=== PATIENT | male | born 1935 | race Caucasian/White ===

== ENCOUNTER 2019-05-14 07:43 | Emergency (ER) | payer MEDICARE | END 2019-05-14 08:23 | disposition home or self-care (01) | LOC: ERS 07:43 | DX: H11.32 Conjunctival hemorrhage, left eye (principal); I25.2 Old myocardial infarction; I10 Essential (primary) hypertension; E78.5 Hyperlipidemia, unspecified; Z79.82 Long term (current) use of aspirin; Z79.899 Other long term (current) drug therapy | CPT/HCPCS: 99283 ==

== ENCOUNTER 2019-08-21 07:21 | Outpatient (CLI) | payer MEDICARE ==
--- NOTE | 2019-08-21 09:06 | MRI ---
BRAIN MRI NONCONTRAST: INDICATION: Memory changes. COMPARISON: No prior comparison. FINDINGS: There is no acute territorial infarction, mass effect, or midline shift. Age-related parenchymal vol ume loss with compensatory dilatation of the ventricular system is present. There is mild chronic is chemic disease of the cerebral white matter. Mild mucosal thickening of the paranasal sinuses. The imaged skull base flow voids are patent. IMPRESSION: 1. No acute intracranial abnormalities. 2. Age-related mild parenchymal atrophy. 3. Mild chronic microvascular ischemic disease. POS: [facility]
--- NOTE | 2019-08-21 09:21 | ULT ---
BILATERAL CAROTID DOPPLER ULTRASOUND: HISTORY: Carotid bruit. TECHNIQUE: Ferrera sale ultrasound with color flow and spectral Doppler imaging of the extracranial carotid arterie s systems is performed bilaterally. FINDINGS: There is plaque formation on either side. The peak systolic velocity in the right ICA measures 76 cm/s with an end-diastolic velocity of 9 cm/s and a systolic ratio of 0.91. The peak systolic velocity in the left ICA measures 77 cm/s with an end-diastolic velocity of 17 cm/s and a systolic ratio of 0.74. Flow in both vertebral arteries remains antegrade. IMPRESSION: No evidence of hemodynamically significant stenosis. POS: OFF
== END 2019-08-21 07:22 | disposition home or self-care (01) ==
LOC: BICMRI 07:21
PROVIDERS: ATTEND Family Medicine
DX: R41.3 Other amnesia (principal); R09.89 Other specified symptoms and signs involving the circulatory and respiratory systems; G31.9 Degenerative disease of nervous system, unspecified; I67.82 Cerebral ischemia
CPT/HCPCS: 70551; 93880

== ENCOUNTER 2019-11-17 07:33 | Outpatient (CLI) | payer MEDICARE ==
[2019-11-17 14:05] LABS: #Basophils 0.1 thou/uL (0.0-0.2); #Eosinphils 0.2 thou/uL (0.0-0.7); #Lymphocytes 2.6 thou/uL (1.20-3.40); #Monocytes 0.9 thou/uL (0.11-0.59); #Neutrophils 6.4 thou/uL (1.40-6.50); %Basophils 0.5 % (0.0-1.0); %Eosinophils 1.7 % (0.0-10.0); %Monocytes 8.8 % (0.0-10.0); Hemoglobin 15.5 g/dL (14.0-18.0); Mean Corpuscular HGB CONC 32.8 g/dL (32.0-36.0); Mean Corpuscular Hemoglobin 31.2 pg (27.0-31.0); Mean Corpuscular Volume 95.2 fL (78.0-98.0); Mean Platelet Volume 9.8 fL (7.4-10.4); Platelet Count 180 thou/uL (130-400); RBC Distribution Width 12.7 % (11.5-14.5); Red Blood Cell (RBC) Count 4.96 mill/uL (4.70-6.10); White Blood Cell (WBC) Count 10.1 thou/uL (4.8-10.8)
[2019-11-17 14:12] LABS: Prothrombin Time 12.7 SEC (12.0-14.7)
[2019-11-17 14:15] LABS: Bacteria/HPF None Seen HPF (None Seen); Bilirubin Negative (Negative); Blood, Urine Negative (Negative); Clarity Clear (Clear); Glucose, Urine (Dipstick) Normal (Negative); Leukocyte Negative Leu/uL (Negative); Nitrite Negative (Negative); Protein, Urine (Dipstick) Negative (Neg-Trace); RBC/HPF 0-3 HPF (0-3); Squamous Epithelial None Seen HPF (0-3); Urobilinogen Normal mg/dL (Less than 2); WBC/HPF 0-3 HPF (0-3)
[2019-11-17 14:29] LABS: Anion Gap 11 mmol/L (10-20); BUN (Urea Nitrogen) 19 mg/dL (8.4-25.7); Calc. Creatinine Clearance 0 mL/min (70-130); Calcium 9.7 mg/dL (7.8-10.44); Carbon Dioxide 28 mmol/L (23-31); Chloride 106 mmol/L (98-107); Estimated GFR-MDRD 64; Glucose 78 mg/dL (83-110); Sodium 140 mmol/L (136-145)
== END 2019-11-17 07:34 | disposition home or self-care (01) ==
LOC: LABBT 07:33
PROVIDERS: ATTEND Orthopaedic Surgery
DX: Z01.818 Encounter for other preprocedural examination (principal); M23.52 Chronic instability of knee, left knee
CPT/HCPCS: 80048; 81001; 85025; 85610; 87081

== ENCOUNTER 2019-11-17 12:30 | Inpatient (IN) | payer MEDICARE ==
[2019-11-17 12:38] VITALS: BMI 26.6
[2019-11-23] MEDS ORDERED: Sodium Chloride 0.9% 100 ML ONE (06:15)
[2019-11-23] MEDS ORDERED: Tranexamic Acid 1,000 MG/10 ML VIAL ONE ×2 (06:15→09:12)
[2019-11-23] MEDS ORDERED: Fentanyl 100 MCG/2 ML VIAL ONE ×3 (06:37→09:57)
[2019-11-23] MEDS ORDERED: Midazolam HCl 2 mg/2 ml Vial ONE (06:37)
[2019-11-23] MEDS ORDERED: PACU-Morphine 4MG/ML VIAL SLOW IVP PRN (06:53)
[2019-11-23] MEDS ORDERED: Promethazine HCl 25 MG/ML VIAL IM PRN ×3 (06:53→07:06)
[2019-11-23] MEDS ORDERED: Promethazine HCl 25 MG/ML VIAL SLOW IVP PRN (06:53)
[2019-11-23] MEDS ORDERED: HYDROcodone/Acetaminophen 10/325 mg Tablet PO PRN ×3 (07:00→07:06)
[2019-11-23] MEDS ORDERED: Zolpidem Tartrate 5 MG TAB PO PRN ×2 (07:00→07:06)
[2019-11-23] MEDS ORDERED: traMADol HCl 50 MG TAB PO PRN ×3 (07:00→07:06)
[2019-11-23] MEDS ORDERED: Ondansetron PF 4 MG/2 ML Vial IVP PRN ×2 (07:00→07:06)
[2019-11-23] MEDS ORDERED: Acetaminophen 325 MG TAB PO PRN ×2 (07:00→07:08)
[2019-11-23] MEDS ORDERED: diphenhydrAMINE 25 MG CAP PO PRN (07:00)
[2019-11-23] MEDS ORDERED: Acetaminophen 500 MG TAB PO PRN (07:02)
[2019-11-23] MEDS ORDERED: Ropivacaine HCl/PF 250 ML in Premix Bag 1 BAG NERVE BLCK SCH (07:06)
[2019-11-23] MEDS ORDERED: Fentanyl 100 MCG/2 ML VIAL SLOW IVP PRN (07:07)
[2019-11-23] MEDS ORDERED: Phenylephrine HCL 10 MG/ML VIAL ONE (07:25)
[2019-11-23] MEDS ORDERED: Famotidine/PF 20 mg/2ml Vial ONE (07:25)
[2019-11-23] MEDS ORDERED: Aspirin 81 mg Enteric Coated Tablet PO SCH (09:00)
--- NOTE | 2019-11-23 09:42 | RAD ---
Exam:2 views left knee HISTORY: Status post arthroplasty. COMPARISON: 02/04/2009 FINDINGS: Findings compatible with right knee arthroplasty. Heterotopic calcification is noted. Expec omer postoperative changes in the soft tissues. IMPRESSION: Findings compatible with left knee arthroplasty.
[2019-11-23] MEDS ORDERED: Ondansetron PF 4 MG/2 ML Vial ONE (09:44)
[2019-11-23] MEDS ORDERED: PROPOFOL 200 MG/20 ML VIAL ONE (09:44)
[2019-11-23] MEDS ORDERED: Ropivacaine 0.5% HCl/PF (150 MG/30 ML VIAL) ONE (09:44)
[2019-11-23] MEDS ORDERED: PHENYLEPHRINE-NS 100 MCG/ML 10 ML SYRINGE ONE (09:44)
[2019-11-23] MEDS ORDERED: Dexamethasone 20 MG/5 ML VIAL ONE (09:44)
[2019-11-23] MEDS ORDERED: Ropivacaine 0.2% HCl/PF (40 MG/20 ML VIAL) ONE (09:44)
[2019-11-23] MEDS ORDERED: Lidocaine 1% PF 5 ML VIAL ONE (09:44)
[2019-11-23] MEDS: CeleCOXIB 100 MG CAP PO SCH (10:15)
[2019-11-23] MEDS: Ubidecarenone 50 MG CAP PO SCH (10:15)
[2019-11-23] MEDS: Lisinopril 10 MG TAB PO SCH (10:15)
[2019-11-23] MEDS: Aspirin 81 mg Enteric Coated Tablet PO SCH ×2 (10:15→20:14)
[2019-11-23] MEDS: Amlodipine 5 MG TAB PO SCH (10:15)
[2019-11-23] MEDS: Sodium Chloride 0.9% 1,000 ML IV SCH ×2 (11:54→14:34)
[2019-11-23] MEDS: CEFAZOLIN 2 GM in Premix Bag 1 BAG IVPB SCH ×2 (14:35→22:09)
[2019-11-23] MEDS ORDERED: Tamsulosin HCl 0.4 MG CAP PO SCH (21:00)
[2019-11-23] MEDS ORDERED: Rosuvastatin 10 MG TAB PO SCH (21:00)
[2019-11-24] MEDS: Sodium Chloride 0.9% 1,000 ML IV SCH (04:54)
[2019-11-24 05:18] LABS: Hemoglobin 13.8 g/dL (14.0-18.0); Mean Corpuscular HGB CONC 32.9 g/dL (32.0-36.0); Mean Corpuscular Volume 94.2 fL (78.0-98.0); Mean Platelet Volume 9.7 fL (7.4-10.4); Platelet Count 163 thou/uL (130-400); RBC Distribution Width 12.3 % (11.5-14.5); Red Blood Cell (RBC) Count 4.45 mill/uL (4.70-6.10); White Blood Cell (WBC) Count 14.2 thou/uL (4.8-10.8)
[2019-11-24] MEDS ORDERED: Ferrous Gluconate 324 MG TAB PO SCH (08:00)
--- NOTE | 2019-11-24 08:14 | OP ---
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 POSTOPERATIVE DIAGNOSIS: Failed left total knee replacement. PROCEDURE PERFORMED: Revision of total knee replacement one component. ANIME ARTIST: Lyndon Edwards PA-C BLOOD LOSS: Minimal. SPECIMEN: None. DRAINS: None. COMPLICATION: None. DESCRIPTION OF PROCEDURE: The patient was taken to the operating room, where general anesthesia was induced. Left leg was prepped and draped in usual sterile fashion. After exsanguination, tourniquet was inflated to 300 mmHg. I made a sterile incision through the old scar. Dissection was carried down to create thick flaps for later closure. A medial parapatellar arthrotomy was performed. Synovectomy was performed. The gutters were cleared. Polyethylene was examined. This was a simple posterior stabilized polyethylene. The knee was quite unstable to varus stress on exam with the polyethylene in place. After removing the polyethylene, I was able to examine the knee very thoroughly. The lateral femoral condyle had been avulsed in the lateral collateral ligament with it. I performed synovectomy in the posterior aspect of the joint. Copious irrigation was performed. I trialed with a 60 mm total stabilized polyethylene liner. This gave excellent stability throughout the range of motion. Trials were removed. Additional irrigation was performed. Permanent implants were packed into place. Retinaculum was repaired with #2 Vicryl and #2 Quill, subcu with 2-0 Quill, and skin was closed with Monoderm. Sterile dressing was applied. Job ID: [id number]
[2019-11-24] MEDS: CeleCOXIB 100 MG CAP PO SCH (08:29)
[2019-11-24] MEDS: Amlodipine 5 MG TAB PO SCH (08:30)
[2019-11-24] MEDS: Lisinopril 10 MG TAB PO SCH (08:30)
[2019-11-24] MEDS: Ubidecarenone 50 MG CAP PO SCH (08:30)
[2019-11-24] MEDS: Aspirin 81 mg Enteric Coated Tablet PO SCH (08:30)
[2019-11-24] MEDS ORDERED: Senokot S 8.6-50 MG TAB PO SCH (09:00)
[2019-11-24] MEDS ORDERED: Multivitamin W/ Minerals 1 TAB PO SCH (09:00)
[2019-11-24 11:11] VITALS: BP 128/66; TEMP 97.9
[2019-11-24] MEDS ORDERED: Prevnar 13-Val Conj/PF 0.5 ML SYRINGE IM ONE (13:15)
== END 2019-11-24 13:15 | disposition home or self-care (01) | DRG 465 ==
LOC: SJJU 11-23 05:59 → SURG A 11-23 10:29
PROVIDERS: ADMIT Orthopaedic Surgery; ATTEND Orthopaedic Surgery
PROC: 0SPD0MZ Removal of Lateral Unicondylar Synthetic Substitute from Left Knee Joint, Open Approach (ICD-10-PCS; principal; 2019-11-23)
PROC: 0SRD0MZ Replacement of Left Knee Joint with Lateral Unicondylar Synthetic Substitute, Open Approach (ICD-10-PCS; 2019-11-23)
PROC: 0SBD0ZZ Excision of Left Knee Joint, Open Approach (ICD-10-PCS; 2019-11-23)
DX: T84.093A Other mechanical complication of internal left knee prosthesis, initial encounter (principal); Y83.8 Other surgical procedures as the cause of abnormal reaction of the patient, or of later complication, without mention of misadventure at the time of the procedure; Z88.8 Allergy status to other drugs, medicaments and biological substances
CPT/HCPCS: 36415; 85027; C1776; J0690; J1100; J2001; J2250; J2370; J2405; J2704; J2795; J3010; J3370; J3490; S0028

== ENCOUNTER 2020-01-18 05:45 | Inpatient (IN) | payer MEDICARE ==
[2020-01-18] MEDS ORDERED: Tranexamic Acid 1,000 MG/10 ML VIAL ONE (06:03)
[2020-01-18] MEDS ORDERED: Sodium Chloride 0.9% 100 ML ONE (06:03)
[2020-01-18] MEDS ORDERED: Fentanyl 100 MCG/2 ML VIAL ONE ×2 (06:05→06:31)
[2020-01-18] MEDS ORDERED: Lidocaine 2% Jelly 5 ML TUBE ONE (06:06)
[2020-01-18] MEDS ORDERED: Midazolam HCl 2 mg/2 ml Vial ONE (06:31)
[2020-01-18 06:38] LABS: #Basophils 0.1 thou/uL (0.0-0.2); #Eosinphils 0.2 thou/uL (0.0-0.7); #Lymphocytes 2.4 thou/uL (1.20-3.40); #Monocytes 0.9 thou/uL (0.11-0.59); #Neutrophils 4.4 thou/uL (1.40-6.50); %Basophils 0.7 % (0.0-1.0); %Eosinophils 2.9 % (0.0-10.0); %Lymphocytes 29.8 % (21.0-51.0); %Monocytes 10.8 % (0.0-10.0); %Neutrophils 55.8 % (42.0-75.0); Hemoglobin 13.8 g/dL (14.0-18.0); Mean Corpuscular HGB CONC 32.1 g/dL (32.0-36.0); Mean Corpuscular Hemoglobin 30.4 pg (27.0-31.0); Mean Corpuscular Volume 94.7 fL (78.0-98.0); Mean Platelet Volume 9.6 fL (7.4-10.4); Platelet Count 188 thou/uL (130-400); RBC Distribution Width 12.6 % (11.5-14.5); Red Blood Cell (RBC) Count 4.53 mill/uL (4.70-6.10)
[2020-01-18 06:57] LABS: Anion Gap 8 mmol/L (10-20); BUN (Urea Nitrogen) 20 mg/dL (8.4-25.7); Calc. Creatinine Clearance 0 mL/min (70-130); Calcium 8.9 mg/dL (7.8-10.44); Carbon Dioxide 28 mmol/L (23-31); Chloride 108 mmol/L (98-107); Estimated GFR-MDRD 77; Glucose 93 mg/dL (83-110); Sodium 140 mmol/L (136-145)
[2020-01-18] MEDS ORDERED: HYDROcodone/Acetaminophen 7.5/325 mg Tablet PO PRN (07:02)
[2020-01-18] MEDS ORDERED: Non-Formulary Item 1 EACH (Tadalafil [Cialis] 5 MG) PO PRN (07:04)
[2020-01-18] MEDS ORDERED: Acetaminophen 500 MG TAB PO PRN (07:04)
[2020-01-18] MEDS ORDERED: traMADol HCl 50 MG TAB PO PRN (07:10)
[2020-01-18] MEDS ORDERED: Promethazine HCl 25 MG/ML VIAL IM PRN (07:10)
[2020-01-18] MEDS ORDERED: Acetaminophen 325 MG TAB PO PRN (07:10)
[2020-01-18] MEDS ORDERED: HYDROcodone/Acetaminophen 10/325 mg Tablet PO PRN ×2 (07:10)
[2020-01-18] MEDS ORDERED: Zolpidem Tartrate 5 MG TAB PO PRN (07:10)
[2020-01-18] MEDS ORDERED: Ondansetron PF 4 MG/2 ML Vial IVP PRN (07:10)
[2020-01-18] MEDS ORDERED: Ropivacaine 0.2% 550 ML 550 ML NERVE BLCK SCH (07:10)
[2020-01-18] MEDS ORDERED: Fentanyl 100 MCG/2 ML VIAL IV PRN (07:11)
[2020-01-18] MEDS ORDERED: Phenylephrine 10 MG/ML VIAL ONE (08:11)
[2020-01-18 10:46] VITALS: BMI 26.6
[2020-01-18] MEDS: Amlodipine 5 MG TAB PO SCH (11:02)
[2020-01-18] MEDS: Lisinopril 10 MG TAB PO SCH (11:02)
[2020-01-18] MEDS: traMADol HCl 50 MG TAB PO PRN ×2 (11:21→18:30)
[2020-01-18] MEDS: Ketorolac Tromethamine 30 MG/ML VIAL IVP SCH ×3 (11:24→23:02)
[2020-01-18] MEDS: Ubidecarenone 50 MG CAP PO SCH (11:28)
[2020-01-18] MEDS: Aspirin 81 mg Enteric Coated Tablet PO SCH (11:29)
[2020-01-18] MEDS ORDERED: PROPOFOL 200 MG/20 ML VIAL ONE (12:10)
[2020-01-18] MEDS ORDERED: Ropivacaine 0.5% HCl/PF (150 MG/30 ML VIAL) ONE (12:10)
[2020-01-18] MEDS ORDERED: Ondansetron PF 4 MG/2 ML Vial ONE (12:10)
[2020-01-18] MEDS ORDERED: Glycopyrrolate 0.2 MG/ML 5 ML SYRINGE ONE (12:10)
[2020-01-18] MEDS ORDERED: Rocuronium Bromide 10 MG/ML (10ML VIAL) ONE (12:10)
[2020-01-18] MEDS ORDERED: Lidocaine 1% PF 5 ML VIAL ONE (12:10)
[2020-01-18] MEDS ORDERED: PHENYLEPHRINE-NS 100 MCG/ML 10 ML SYRINGE ONE (12:10)
[2020-01-18] MEDS ORDERED: Dexamethasone 20 MG/5 ML VIAL ONE (12:10)
[2020-01-18] MEDS ORDERED: Ropivacaine 0.2% HCl/PF (40 MG/20 ML VIAL) ONE (12:10)
[2020-01-18] MEDS: CEFAZOLIN 2 GM in Premix Bag 1 BAG IVPB SCH ×2 (14:00→20:13)
[2020-01-18] MEDS ORDERED: Vancomycin HCl 1.5 GM in Sodium Chloride 0.9% 250 ML 300 ML IVPB SCH (18:00)
[2020-01-18] MEDS ORDERED: Vancomycin 1.5 GRAM/300 ML BAG 1.5 GM in Premix Bag 1 BAG IVPB SCH (18:00)
[2020-01-18] MEDS: Dextrose 5 %-0.45 % NaCl 1,000 ML IV SCH ×2 (20:13→20:19)
[2020-01-18] MEDS ORDERED: Tamsulosin HCl 0.4 MG CAP PO SCH (21:00)
[2020-01-18] MEDS ORDERED: Rosuvastatin 10 MG TAB PO SCH (21:00)
[2020-01-19] MEDS: traMADol HCl 50 MG TAB PO PRN (00:45)
[2020-01-19] MEDS: Ketorolac Tromethamine 30 MG/ML VIAL IVP SCH ×3 (00:46→12:58)
[2020-01-19] MEDS: Amlodipine 5 MG TAB PO SCH (08:37)
[2020-01-19] MEDS: Aspirin 81 mg Enteric Coated Tablet PO SCH (08:37)
[2020-01-19] MEDS: Ubidecarenone 50 MG CAP PO SCH (08:37)
[2020-01-19] MEDS: Lisinopril 10 MG TAB PO SCH (08:37)
[2020-01-19 10:57] VITALS: BP 152/69; TEMP 97.9
--- NOTE | 2020-01-19 17:34 | OP ---
DATE OF PROCEDURE: 01/18/2020 PROCEDURE PERFORMED: Right total shoulder arthroplasty of the right biceps tenodesis. NURSE STAFF [facility]: Lyndon Edwards PA-C BLOOD LOSS: Less than 100. SPECIMEN: None. DRAIN: None. COMPLICATION: None. IMPLANTS USED: TORNIER CORTILOC medium glenoid with a 43 mm head and #4 stem. NARRATIVE REPORT: After standard deltopectoral approach, I examined the biceps tendon sheath which was inflamed and had a very thick bursal layer over the top with underlying ganglion. Biceps was opened. The biceps tendon sheath was opened. Biceps was in poor condition. It was taken off the superior glenoid tubercle and tacked and then tenodesed using #5 Ethibond suture to bone below the joint. The subscapularis was taken off using an osteotome to make a small lesser trochanteric osteotomy, tagged with four #5 Ethibond sutures. Head was dislocated. Osteophytes were trimmed. I released the anterior capsule, got the subscapularis to an elastic consistency. I then cut the humeral head at a 135-degree angle and trimmed the osteophytes. The head was then broached and sized appropriately. A trial prosthesis was left in the shaft and I approached the glenoid. Bone spurs were removed from around the glenoid. True center of the glenoid was identified. I made a single drill hole and reamed with an appropriate size reamer, trimmed osteophytes, punched the keel and did a trial reduction with the glenoid which appeared to be an appropriate fit. Trials were removed and irrigation was performed. The glenoid was punched into place and cement was allowed to cure. Extraneous cement was removed. Attention was turned back to the humerus where trial heads were used and the appropriate size was confirmed with the appropriate elasticity of the tissues. Trial was removed. Irrigation was performed. Four #5 Ethibond sutures were placed through the lesser tuberosity. The permanent implant was impacted into place. The subscapularis was repaired in a double-row fashion. The rotator interval was repaired with #1 Ethibond. Irrigation performed again. Deltopectoral interval was tacked closed with 0 Vicryl, subcutaneous closed with 2-0 Vicryl. The skin was closed with bijan. Sterile dressings applied. The patient was placed in a sling. There were no complications. Job ID: [id number]
[2020-01-21] MEDS ORDERED: CeleCOXIB 100 MG CAP PO SCH (09:00)
== END 2020-01-19 13:30 | disposition home or self-care (01) | DRG 483 ==
LOC: SURG A 05:45
PROVIDERS: ADMIT Orthopaedic Surgery; ATTEND Orthopaedic Surgery
PROC: 0RRJ0JZ Replacement of Right Shoulder Joint with Synthetic Substitute, Open Approach (ICD-10-PCS; principal; 2020-01-18)
DX: M19.011 Primary osteoarthritis, right shoulder (principal); Z96.652 Presence of left artificial knee joint; E78.5 Hyperlipidemia, unspecified; K21.9 Gastro-esophageal reflux disease without esophagitis; I11.9 Hypertensive heart disease without heart failure; Z87.442 Personal history of urinary calculi
CPT/HCPCS: 36415; 80048; 85025; 93005; 93010; A4306; C1713; J0690; J1100; J1885; J2001; J2250; J2370; J2405; J2704; J2795; J3010; J3370; J3490

== ENCOUNTER 2020-05-09 06:47 | Outpatient (CLI) | payer MEDICARE, OTHER ==
[2020-05-09 14:02] LABS: #Eosinphils 0.2 thou/uL (0.0-0.7); #Lymphocytes 2.2 thou/uL (1.20-3.40); #Monocytes 0.6 thou/uL (0.11-0.59); %Basophils 0.5 % (0.0-1.0); %Eosinophils 2.5 % (0.0-10.0); %Lymphocytes 27.5 % (21.0-51.0); %Monocytes 7.8 % (0.0-10.0); %Neutrophils 61.6 % (42.0-75.0); Hemoglobin 14.4 g/dL (14.0-18.0); Mean Corpuscular HGB CONC 31.6 g/dL (32.0-36.0); Mean Corpuscular Volume 91.8 fL (78.0-98.0); Mean Platelet Volume 9.2 fL (7.4-10.4); Platelet Count 254 thou/uL (130-400); RBC Distribution Width 13.3 % (11.5-14.5); Red Blood Cell (RBC) Count 4.96 mill/uL (4.70-6.10); White Blood Cell (WBC) Count 8.1 thou/uL (4.8-10.8)
[2020-05-09 14:07] LABS: Bacteria/HPF None Seen HPF (None Seen); RBC/HPF 0-3 HPF (0-3); Squamous Epithelial 0-3 HPF (0-3); WBC/HPF 0-3 HPF (0-3)
[2020-05-09 14:15] LABS: INR-International Normal Ratio 0.9; Prothrombin Time 12.3 sec (12.0-14.7)
[2020-05-09 14:52] LABS: Anion Gap 11 mmol/L (10-20); BUN (Urea Nitrogen) 20 mg/dL (8.4-25.7); Calc. Creatinine Clearance 0 mL/min (70-130); Calcium 8.9 mg/dL (7.8-10.44); Carbon Dioxide 26 mmol/L (23-31); Chloride 105 mmol/L (98-107); Estimated GFR-MDRD 65; Glucose 101 mg/dL (83-110); Potassium 4.3 mmol/L (3.5-5.1); Sodium 138 mmol/L (136-145)
[2020-05-10 09:25] LABS: Bilirubin Negative (Negative); Blood, Urine Negative (Negative); Clarity Clear (Clear); Glucose, Urine (Dipstick) Normal (Negative); Leukocyte Negative Leu/uL (Negative); Nitrite Negative (Negative); Protein, Urine (Dipstick) 10 mg/dL (Neg-Trace); Urobilinogen Normal mg/dL (Less than 2)
[2020-05-10 12:06] LABS: SARS-CoV-2 MS2 Positive; SARS-CoV-2 N Gene Negative; SARS-CoV-2 S Gene Negative; SARS-CoV-2 orf1ab Negative
== END 2020-05-09 06:48 | disposition home or self-care (01) ==
LOC: LABBT 06:47
PROVIDERS: ATTEND Orthopaedic Surgery
DX: Z01.818 Encounter for other preprocedural examination (principal); Z11.59 Encounter for screening for other viral diseases; T84.093A Other mechanical complication of internal left knee prosthesis, initial encounter
CPT/HCPCS: 80048; 81015; 85025; 85610; 87081; U0003; 87635; 93005; 93010

== ENCOUNTER 2020-05-09 09:30 | Inpatient (IN) | payer MEDICARE ==
[2020-05-08 10:42] VITALS: BMI 26.6
[2020-05-13] MEDS ORDERED: Vancomycin 1 GM/200 ML BAG ONE (10:25)
[2020-05-13] MEDS ORDERED: Sodium Chloride 0.9% 100 ML ONE (10:25)
[2020-05-13] MEDS ORDERED: Tranexamic Acid 1,000 MG/10 ML VIAL ONE (10:25)
[2020-05-13] MEDS ORDERED: Midazolam HCl 2 mg/2 ml Vial ONE (10:46)
[2020-05-13] MEDS ORDERED: Fentanyl 100 MCG/2 ML VIAL ONE ×3 (10:46→15:28)
[2020-05-13] MEDS ORDERED: Lidocaine 1% (PF) 30 ML VIAL ONE (10:47)
[2020-05-13] MEDS ORDERED: Ketorolac Tromethamine 30 MG/ML VIAL IVP PRN (12:14)
[2020-05-13] MEDS ORDERED: Ropivacaine HCl/PF 250 ML in Premix Bag 1 BAG NERVE BLCK SCH (12:14)
[2020-05-13] MEDS ORDERED: Fentanyl 100 MCG/2 ML VIAL IV PRN (12:14)
[2020-05-13] MEDS ORDERED: Ondansetron PF 4 MG/2 ML Vial IVP PRN (12:14)
[2020-05-13] MEDS ORDERED: HYDROcodone/Acetaminophen 10/325 mg Tablet PO PRN ×4 (12:14→15:43)
[2020-05-13] MEDS ORDERED: traMADol HCl 50 MG TAB PO PRN ×2 (12:14)
[2020-05-13] MEDS ORDERED: Promethazine HCl 25 MG/ML VIAL IM PRN (12:14)
[2020-05-13] MEDS ORDERED: Zolpidem Tartrate 5 MG TAB PO PRN (12:14)
[2020-05-13] MEDS ORDERED: Ondansetron PF 4 MG/2 ML Vial ONE (12:28)
[2020-05-13] MEDS ORDERED: Ropivacaine 0.2% HCl/PF (40 MG/20 ML VIAL) ONE (12:28)
[2020-05-13] MEDS ORDERED: Lidocaine 1% PF 5 ML VIAL ONE (12:28)
[2020-05-13] MEDS ORDERED: PROPOFOL 200 MG/20 ML VIAL ONE (12:28)
[2020-05-13] MEDS ORDERED: Bupivacaine HCl 0.5%/Epinephrine 1:200,000/PF 30 ml Vial ONE (12:28)
[2020-05-13] MEDS ORDERED: PHENYLEPHRINE-NS 100 MCG/ML 10 ML SYRINGE ONE (12:28)
[2020-05-13] MEDS ORDERED: Metoclopramide HCl 10 MG/2 ML VIAL ONE (12:28)
[2020-05-13] MEDS ORDERED: Succinylcholine Chloride 20 MG/ML 10 ml SYRINGE FS ONE (12:28)
[2020-05-13] MEDS ORDERED: EPHEDRINE 25 MG/5 ML SYRINGE ONE (12:28)
[2020-05-13] MEDS ORDERED: Phenylephrine 10 MG/ML VIAL ONE (13:18)
[2020-05-13] MEDS ORDERED: (Tadalafil [Cialis] 5 MG) PO PRN (15:18)
[2020-05-13] MEDS ORDERED: Acetaminophen 325 MG TAB PO PRN (15:43)
[2020-05-13] MEDS ORDERED: Bisacodyl 10 MG SUPP PR PRN (15:43)
[2020-05-13] MEDS ORDERED: Ondansetron PF 4 MG/2 ML Vial IM PRN (15:43)
[2020-05-13] MEDS ORDERED: Fleet Enema 133 ML BOT PR PRN (15:43)
[2020-05-13] MEDS ORDERED: Morphine 2 MG/ML SYRINGE SLOW IVP PRN (15:43)
[2020-05-13] MEDS ORDERED: Milk Of Magnesia 30 ML UDCUP PO PRN (15:43)
--- NOTE | 2020-05-13 16:09 | RAD ---
Exam:Left knee 2 views HISTORY: Postoperative exam. COMPARISON: 11/23/2019 FINDINGS: Postoperative changes. Soft tissue calcifications, vascular calcifications soft tissue swel ling and subcutaneous emphysema are noted. IMPRESSION: Findings compatible with surgery. Status post resection of the distal femur and replaceme nt of internal fixation hardware.
[2020-05-13] MEDS: Fentanyl 100 MCG/2 ML VIAL SLOW IVP PRN ×2 (18:18→20:11)
[2020-05-13] MEDS: CEFAZOLIN 2 GM in Premix Bag 1 BAG IVPB SCH (18:19)
[2020-05-13] MEDS: Sodium Chloride 0.9% 1,000 ML IV SCH (18:20)
[2020-05-13] MEDS: traMADol HCl 50 MG TAB PO PRN (19:22)
[2020-05-13] MEDS: Aspirin 81 mg Enteric Coated Tablet PO SCH (20:10)
[2020-05-13] MEDS: Senokot S 8.6-50 MG TAB PO SCH (20:11)
[2020-05-13] MEDS: Rosuvastatin 10 MG TAB PO SCH (20:11)
[2020-05-13] MEDS: Tamsulosin HCl 0.4 MG CAP PO SCH (20:11)
--- NOTE | 2020-05-13 20:44 | OP ---
DATE OF PROCEDURE: 05/13/2020 PREOPERATIVE DIAGNOSIS: Failed revision total knee arthroplasty, left. POSTOPERATIVE DIAGNOSIS: Failed revision total knee arthroplasty, left. PROCEDURE PERFORMED: Left total knee arthroplasty using a Michi distal femoral replacement prosthesis with a rotating hinge. I used a small femur, a 40-mm process safety specialist, 150 stem, and on the tibia side, used an S2 tibial baseplate with a 50 mm x 12 stem, both fixed with cement and bone plug. EXECUTIVE CHEF ASSISTANT: Ayo Dickerson PA-C BLOOD LOSS: Less than 200. TOURNIQUET TIME: 120 minutes. SPECIMEN: None. DRAINS: None. COMPLICATION: None. DESCRIPTION OF PROCEDURE: The patient was taken to the operating room where general anesthesia was induced. He received Ancef and vancomycin preoperatively. The left leg was prepped and draped in the usual sterile fashion. 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 I performed complete synovectomy. The distal femur was severely eroded around the stem and there were multiple fractures. I felt the only option in this condition was distal femoral replacement. I measured the length of the limb and then removed the distal femur and cut the femur out with an oscillating saw. I then turned my attention to the tibia. The tibia was removed with a sagittal saw and punches and then I used [employer] cement removal set to help remove cement from the tibia. The tibia was prepared for the implants described above. The femur was reamed with flexible reamers to a size 15 and I cemented a size 13 stem after accounting for rotation and length. In the tibia, I used a 10-mm polyethylene and this gave good stability of the patella throughout range of motion. Good overall limb alignment. Irrigation was performed. The quadriceps mechanism was repaired with #5 Ethibond and #2 Vicryl. Subcu closed with 0 Quill. Skin was closed with Prolene and sterile dressings applied. Job ID: [id number]
[2020-05-13] MEDS ORDERED: Vancomycin 1.5 GRAM/300 ML BAG 1.5 GM in Premix Bag 1 BAG IVPB SCH (22:00)
[2020-05-14] MEDS: traMADol HCl 50 MG TAB PO PRN ×3 (00:30→20:25)
--- NOTE | 2020-05-14 01:37 | CON ---
DATE OF CONSULTATION: 05/13/2020 HISTORY OF PRESENT ILLNESS: This is an 84-year-old male, who is admitted to the hospital for left knee revision. Family Medicine Team is consulted for medical management of chronic conditions. The patient currently has no symptoms and no complaints other than feeling a little shaky after his surgery. PAST MEDICAL HISTORY: PAD, status post 2 stents; hypertension; hyperlipidemia; BPH; and ED. PAST SURGICAL HISTORY: Multiple surgeries on the left knee, complete right shoulder, and cardiac catheterizations. FAMILY HISTORY: Unremarkable. ALLERGIES: NAPROXEN. SOCIAL HISTORY: Denies tobacco, alcohol, or drugs. REVIEW OF SYSTEMS: CONSTITUTIONAL: No fevers, no chills. No visual problems. No hearing problems. No eye discharge. No fatigue. No malaise. CARDIOVASCULAR: No chest pain. No palpitations. RESPIRATORY: No shortness of breath. No cough. GI: No nausea. No vomiting. No diarrhea. No constipation. : No dysuria. No hematuria. NEUROLOGIC: No syncope. No seizures. SKIN: No skin lesions. No rash. PHYSICAL EXAMINATION: VITAL SIGNS: Blood pressure 111/63, heart rate 89, oxygen saturation 95% on 2 L nasal cannula, respiration rate 16, and temperature 98.1. GENERAL: No acute distress. The patient appears comfortable. HEENT: EOMI. Normal oropharynx. NECK: Trachea midline. . CARDIAC: Regular rate and rhythm. Grade 2/6 systolic murmur. PULMONARY: Clear to auscultation bilaterally. No wheezing. ABDOMEN: Nontender, soft. SKIN: No lesions, no vora. NEURO: Alert and oriented x3. PSYCH: Good mood. Euvolemic affect. LABORATORY FINDINGS: Preop labs on 05/08, show white blood cell count 8.1, hemoglobin and hematocrit of 14.4 and 45.6, and platelet count 254. Sodium 138, potassium 4.3, chloride 105, carbon dioxide 26, BUN is 20, creatinine 1.08. COVID-19 PCR, not chair pad maker. ASSESSMENT AND PLAN: This is an 84-year-old male, who presented for left knee surgery. Regarding his chronic conditions, most of his home medications are already started. I will hold his aspirin, to be restarted by Surgery. Pain management per surgical management. Job ID: [id number]
[2020-05-14] MEDS: Sodium Chloride 0.9% 1,000 ML IV SCH ×2 (02:27→11:49)
[2020-05-14] MEDS: CEFAZOLIN 2 GM in Premix Bag 1 BAG IVPB SCH (02:48)
[2020-05-14 05:33] LABS: Hemoglobin 12.5 g/dL (14.0-18.0); Mean Corpuscular HGB CONC 31.2 g/dL (32.0-36.0); Mean Corpuscular Hemoglobin 28.6 pg (27.0-31.0); Mean Corpuscular Volume 91.5 fL (78.0-98.0); Mean Platelet Volume 9.4 fL (7.4-10.4); Platelet Count 189 thou/uL (130-400); RBC Distribution Width 13.5 % (11.5-14.5); Red Blood Cell (RBC) Count 4.37 mill/uL (4.70-6.10); White Blood Cell (WBC) Count 15.2 thou/uL (4.8-10.8)
--- NOTE | 2020-05-14 05:44 | PDOC.FM ---
- Subjective Subjective: Feeling well this morning. No overnight events. - Objective MAR Reviewed: Yes Vital Signs & Weight: Vital Signs (12 hours) Temp Pulse Resp BP Pulse Ox 05/14/20 03:46 98.4 F 85 18 108/57 L 94 L 05/14/20 01:23 95 05/13/20 23:05 98.3 F 99 16 126/57 L 96 05/13/20 22:05 106 H 16 139/59 L 05/13/20 21:05 94 16 128/64 05/13/20 20:05 98.1 F 96 16 124/58 L 96 05/13/20 20:00 95 05/13/20 19:37 98.1 F 89 16 111/63 95 05/13/20 18:35 93 16 129/70 05/13/20 18:05 92 16 110/60 Weight Weight 77.111 kg Result Diagrams: 05/14/20 04:54 Phys Exam - Physical Examination Constitutional: NAD HEENT: moist MMs Neck: supple Respiratory: no wheezing, clear to auscultation bilateral Cardiovascular: RRR systolic murmur Gastrointestinal: soft, non-tender Musculoskeletal: no edema left leg in immobilizer Psychiatric: normal affect, A&O x 3 Skin: no rash Dx/Plan - Plan Plan: 84yo male POD#1 from left knee revision Left knee revision - Pain management per surgery - PT/OT CAD s/p 2 stents - Hold ASA, restart per surgery HTN - Continue home meds HLD - Continue home meds BPH - Continue home meds Code Statis: DNR Addendum - Attending - Attending Attestation Date/Time: 05/14/20 8555 I personally evaluated the patient and discussed the management with Dr. Henriquez I agree with the History, Examination, Assessment and Plan documented above with any addition or exceptions noted below - Patient without coplaints. Afebrile VSS. A/P: 1) HTN- stable; continue hoe meds. 2) POD#1 s/p left TKR revision - plans as per ortho.
--- NOTE | 2020-05-14 07:13 | PDOC.EVN ---
Event Note - Event Note Event Note: I personally saw and evaluated the patient at approximately 2200 on 05/13. I agree with Dr. Toledo's documentation and care plan.
--- NOTE | 2020-05-14 07:56 | RAD ---
EXAM: XR Femur Lt 2 View STANDARD DATE: 05/14/2020 7:08 AM INDICATION: Postop left knee COMPARISON: Left knee radiographs dated May 01, 2020 and May 13, 2020. FINDING: The distal femoral replacement and constrained left total knee prosthetic construct project s in the expected position without gross evidence of complication. There is a knee immobilizer in place. Foci of heterotopic ossification surrounding the distal left femur are stable. There is modera te degenerative change of the left hip. Mild residual soft tissue gas is seen surrounding the left knee. IMPRESSION: Stable postoperative left knee
[2020-05-14] MEDS: Aspirin 81 mg Enteric Coated Tablet PO SCH ×2 (08:47→20:24)
[2020-05-14] MEDS: Ubidecarenone 50 MG CAP PO SCH (08:47)
[2020-05-14] MEDS: Multivitamin W/ Minerals 1 TAB PO SCH (08:47)
[2020-05-14] MEDS: Senokot S 8.6-50 MG TAB PO SCH ×2 (08:47→20:24)
[2020-05-14] MEDS: CeleCOXIB 100 MG CAP PO SCH (08:47)
[2020-05-14] MEDS: Lisinopril 10 MG TAB PO SCH (08:47)
[2020-05-14] MEDS: Lactinex Tablet PO SCH (08:48)
[2020-05-14] MEDS: Amlodipine 5 MG TAB PO SCH (08:48)
[2020-05-14] MEDS: Stress 600 With Zinc 1 TAB PO SCH (10:00)
[2020-05-14] MEDS: Tamsulosin HCl 0.4 MG CAP PO SCH (20:24)
[2020-05-14] MEDS: Rosuvastatin 10 MG TAB PO SCH (20:24)
[2020-05-15] MEDS: Fentanyl 100 MCG/2 ML VIAL SLOW IVP PRN (00:45)
[2020-05-15] MEDS: Sodium Chloride 0.9% 1,000 ML IV SCH ×3 (00:48→19:49)
[2020-05-15] MEDS: traMADol HCl 50 MG TAB PO PRN (04:14)
--- NOTE | 2020-05-15 05:54 | PDOC.FM ---
- Subjective Subjective: Feeling well this morning. Worked with physical therapy yesterday, feels pretty tired and sore today. Otherwise no concerns or complaints. - Objective MAR Reviewed: Yes Vital Signs & Weight: Vital Signs (12 hours) Temp Pulse Resp BP Pulse Ox 05/15/20 04:18 98.7 F 84 16 158/68 H 94 L 05/14/20 20:33 98.7 F 88 16 165/84 H 93 L 05/14/20 20:00 93 L Weight Admit Weight 77.111 kg Weight 77.111 kg I&O: 05/13/20 05/14/20 05/15/20 06:59 06:59 06:59 Intake Total 1000 948 Output Total 650 425 Balance 350 523 Result Diagrams: 05/15/20 07:07 Phys Exam - Physical Examination Constitutional: NAD HEENT: moist MMs Neck: supple Respiratory: no wheezing, clear to auscultation bilateral sinus arrythmia, systolic murmur Gastrointestinal: soft, non-tender Musculoskeletal: no edema left leg in immobilizer Psychiatric: normal affect, A&O x 3 Skin: no rash Dx/Plan - Plan Plan: 84yo male POD#2 from left knee revision Left knee revision - Pain management per surgery - PT/OT CAD s/p 2 stents - Hold ASA, restart per surgery HTN - Continue home meds HLD - Continue home meds BPH - Continue home meds Code Statis: DNR Addendum - Attending - Attending Attestation Date/Time: 05/15/20 1526 I personally evaluated the patient and discussed the management with Dr. Henriquez I agree with the History, Examination, Assessment and Plan documented above with any addition or exceptions noted below - Patietn denies any complaints. Pain with standing and ambulation but controlled when resting. Afebrile VSS. A/P : 1) HTN- stable; continue home meds. 2) L knee replacement revision- plans as per ortho.
[2020-05-15 07:15] LABS: Hemoglobin 12.9 g/dL (14.0-18.0); Mean Corpuscular HGB CONC 31.3 g/dL (32.0-36.0); Mean Corpuscular Hemoglobin 28.9 pg (27.0-31.0); Mean Corpuscular Volume 92.4 fL (78.0-98.0); Mean Platelet Volume 9.2 fL (7.4-10.4); Platelet Count 180 thou/uL (130-400); RBC Distribution Width 13.6 % (11.5-14.5); Red Blood Cell (RBC) Count 4.45 mill/uL (4.70-6.10); White Blood Cell (WBC) Count 14.6 thou/uL (4.8-10.8)
[2020-05-15] MEDS: Lactinex Tablet PO SCH (08:28)
[2020-05-15] MEDS: Aspirin 81 mg Enteric Coated Tablet PO SCH ×2 (08:28→19:50)
[2020-05-15] MEDS: Stress 600 With Zinc 1 TAB PO SCH (08:28)
[2020-05-15] MEDS: Senokot S 8.6-50 MG TAB PO SCH ×2 (08:28→19:50)
[2020-05-15] MEDS: Ubidecarenone 50 MG CAP PO SCH (08:28)
[2020-05-15] MEDS: CeleCOXIB 100 MG CAP PO SCH (08:28)
[2020-05-15] MEDS: Multivitamin W/ Minerals 1 TAB PO SCH (08:28)
[2020-05-15] MEDS: Lisinopril 10 MG TAB PO SCH (08:28)
[2020-05-15] MEDS: Amlodipine 5 MG TAB PO SCH (08:28)
[2020-05-15] MEDS: Tamsulosin HCl 0.4 MG CAP PO SCH (19:50)
[2020-05-15] MEDS: Rosuvastatin 10 MG TAB PO SCH (19:50)
[2020-05-16] MEDS: Sodium Chloride 0.9% 1,000 ML IV SCH (02:46)
--- NOTE | 2020-05-16 05:54 | PDOC.FM ---
- Subjective Subjective: feeling well today. No overnight events. Pain controlled. Has been working with PT. Feels ready to go home. - Objective MAR Reviewed: Yes Vital Signs & Weight: Vital Signs (12 hours) Temp Pulse Resp BP BP BP Pulse Ox 05/16/20 03:16 98.5 F 73 18 133/63 93 L 05/15/20 23:41 98.2 F 76 18 153/69 H 94 L 05/15/20 19:56 98.4 F 85 18 161/63 H 96 05/15/20 18:00 98.3 F 85 16 142/67 H 95 Weight Admit Weight 77.111 kg Weight 77.111 kg I&O: 05/14/20 05/15/20 05/16/20 06:59 06:59 06:59 Intake Total 1000 1748 711 Output Total 650 1125 600 Balance 350 623 111 Result Diagrams: 05/16/20 05:42 Phys Exam - Physical Examination Constitutional: NAD HEENT: moist MMs Neck: supple No respiratory distress Systolic murmur Neurological: non-focal Psychiatric: normal affect, A&O x 3 Skin: no rash Dx/Plan - Plan Plan: 84yo male POD#3 from left knee revision Left knee revision - Pain management per surgery - PT/OT CAD s/p 2 stents - Continue ASA HTN - Continue home meds HLD - Continue home meds BPH - Continue home meds Code Statis: DNR Dispo: D/c home today Addendum - Attending - Attending Attestation Date/Time: 05/16/20 4427 I personally evaluated the patient and discussed the management with Dr. Henriquez I agree with the History, Examination, Assessment and Plan documented above with any addition or exceptions noted below- Patient without complaints except for leg/knee pain. Afebrile VSS. A/P: POD#2 s/p left knee revision- stable; plan for discharge as per ortho. 2) HTN- stable; continue home meds.
[2020-05-16 06:10] LABS: Hemoglobin 12.3 g/dL (14.0-18.0); Mean Corpuscular HGB CONC 32.1 g/dL (32.0-36.0); Mean Corpuscular Hemoglobin 29.3 pg (27.0-31.0); Mean Corpuscular Volume 91.2 fL (78.0-98.0); Mean Platelet Volume 10.1 fL (7.4-10.4); Platelet Count 169 thou/uL (130-400); RBC Distribution Width 13.7 % (11.5-14.5); Red Blood Cell (RBC) Count 4.19 mill/uL (4.70-6.10); White Blood Cell (WBC) Count 10.8 thou/uL (4.8-10.8)
[2020-05-16] MEDS: traMADol HCl 50 MG TAB PO PRN (06:44)
[2020-05-16 07:24] VITALS: TEMP 98.3
[2020-05-16] MEDS: Ubidecarenone 50 MG CAP PO SCH (09:30)
[2020-05-16] MEDS: Senokot S 8.6-50 MG TAB PO SCH (09:30)
[2020-05-16] MEDS: Aspirin 81 mg Enteric Coated Tablet PO SCH (09:30)
[2020-05-16] MEDS: Multivitamin W/ Minerals 1 TAB PO SCH (09:31)
[2020-05-16] MEDS: Amlodipine 5 MG TAB PO SCH (09:31)
[2020-05-16] MEDS: Lactinex Tablet PO SCH (09:31)
[2020-05-16] MEDS: Lisinopril 10 MG TAB PO SCH (09:31)
[2020-05-16] MEDS: Stress 600 With Zinc 1 TAB PO SCH (09:32)
[2020-05-16] MEDS: CeleCOXIB 100 MG CAP PO SCH (09:36)
[2020-05-16 11:36] VITALS: BP 150/54
== END 2020-05-16 16:12 | disposition home or self-care (01) | DRG 468 ==
LOC: EDSTATUS 05-13 09:30 → SURG A 05-13 10:00
PROVIDERS: ADMIT Orthopaedic Surgery; ATTEND Orthopaedic Surgery
PROC: 0SPD0JZ Removal of Synthetic Substitute from Left Knee Joint, Open Approach (ICD-10-PCS; principal; 2020-05-13)
PROC: 0SRD0J9 Replacement of Left Knee Joint with Synthetic Substitute, Cemented, Open Approach (ICD-10-PCS; 2020-05-13)
DX: T84.013A Broken internal left knee prosthesis, initial encounter (principal); Y83.8 Other surgical procedures as the cause of abnormal reaction of the patient, or of later complication, without mention of misadventure at the time of the procedure; Z66 Do not resuscitate; I10 Essential (primary) hypertension; E78.5 Hyperlipidemia, unspecified; N40.0 Benign prostatic hyperplasia without lower urinary tract symptoms; I25.10 Atherosclerotic heart disease of native coronary artery without angina pectoris; Z95.5 Presence of coronary angioplasty implant and graft; Z79.899 Other long term (current) drug therapy
CPT/HCPCS: 36415; 85027; C1713; C1776; J0670; J0690; J1885; J2001; J2250; J2370; J2405; J2704; J2765; J2795; J3010; J3370; J3490

== ENCOUNTER 2023-01-15 15:22 | Inpatient (IN) | payer MEDICARE ==
[~2023-01-15 15:22] MED LIST: Iopamidol 370 76% 100 ML VIAL ONE
[2023-01-15] MEDS ORDERED: Heparin 10,000 UNITS/ 10 ML VIAL ONE ×2 (15:30→15:41)
[2023-01-15] MEDS ORDERED: Clopidogrel Bisulfate 300 MG TAB ONE (15:30)
[2023-01-15] MEDS ORDERED: Nitroglycerin 50 MG/250 ML BOT 250 ML ONE (15:35)
[2023-01-15] MEDS ORDERED: Atropine Sulfate 1 mg/1 ml Vial ONE (15:41)
[2023-01-15] MEDS ORDERED: Ondansetron PF 4 MG/2 ML Vial ONE (15:41)
[2023-01-15] MEDS ORDERED: Lidocaine 1% (PF) 30 ML VIAL ONE (15:41)
[2023-01-15] MEDS ORDERED: Verapamil 5 MG/2 ML VIAL ONE (15:42)
[2023-01-15] MEDS ORDERED: Nitroglycerin 100MG/250ML BOT 0 ML ONE (15:42)
[2023-01-15] MEDS ORDERED: Adenosine 6 MG/2 ML VIAL ONE (15:42)
[2023-01-15] MEDS ORDERED: Atropine Sulfate 1 mg/10 ml Syringe ONE (15:45)
[2023-01-15 15:46] LABS: #Eosinphils 0.1 thou/uL (0.0-0.7); #Lymphocytes 2.8 thou/uL (1.20-3.40); #Monocytes 0.6 thou/uL (0.11-0.59); #Neutrophils 4.2 thou/uL (1.40-6.50); %Basophils 0.5 % (0.0-1.0); %Eosinophils 1.7 % (0.0-10.0); %Lymphocytes 36.3 % (21.0-51.0); %Monocytes 7.8 % (0.0-10.0); %Neutrophils 53.8 % (42.0-75.0); Hemoglobin 15.5 g/dL (14.0-18.0); Mean Corpuscular HGB CONC 33.4 g/dL (32.0-36.0); Mean Corpuscular Hemoglobin 31.7 pg (27.0-31.0); Mean Corpuscular Volume 94.9 fl (78.0-98.0); Mean Platelet Volume 10.2 fL (7.4-10.4); Platelet Count 139 10x3/uL (130-400); RBC Distribution Width 12.6 % (11.5-14.5); Red Blood Cell (RBC) Count 4.88 mill/uL (4.70-6.10); White Blood Cell (WBC) Count 7.7 10x3/uL (4.8-10.8)
[2023-01-15 16:10] LABS: ALT (SGPT) 12 U/L (8-55); AST (SGOT) 18 U/L (5-34); Alkaline Phosphatase 62 U/L (40-110); Anion Gap 15 mmol/L (10-20); BUN (Urea Nitrogen) 18 mg/dL (8.4-25.7); Bilirubin, Total 0.7 mg/dL (0.2-1.2); Calc. Creatinine Clearance 0 mL/min (70-130); Calcium 10.6 mg/dL (7.8-10.44); Carbon Dioxide 23 mmol/L (23-31); Chloride 105 mmol/L (98-107); Estimated GFR 58; Globulin 3.1 g/dL (2.4-3.5); Glucose 101 mg/dL (83-110); Potassium 3.8 mmol/L (3.5-5.1); Protein, Total 7.1 g/dL (5.8-8.1); Sodium 139 mmol/L (136-145)
[2023-01-15] MEDS ORDERED: TICAGRELOR 90 MG TABLET ONE (16:39)
[2023-01-15] MEDS ORDERED: Morphine 2 MG/ML VIAL SLOW IVP PRN (16:57)
[2023-01-15] MEDS ORDERED: traMADol HCl 50 MG TAB PO PRN (16:57)
[2023-01-15] MEDS ORDERED: Mag-Al 1200 mg/1200 mg/30 ML UDCUP PO PRN (16:57)
[2023-01-15] MEDS ORDERED: Acetaminophen/Codeine 30-300mg Tablet PO PRN (16:57)
[2023-01-15] MEDS ORDERED: Zolpidem Tartrate 5 MG TAB PO PRN (16:57)
[2023-01-15] MEDS ORDERED: Milk Of Magnesia 30 ML UDCUP PO PRN (16:57)
[2023-01-15] MEDS ORDERED: Sodium Chloride 0.9% 500 ML IV SCH (17:15)
[2023-01-15 17:25] VITALS: BMI 26.7
[2023-01-15 18:08] LABS: CKMB 3.4 ng/mL (0-6.6)
[2023-01-15 18:09] LABS: Troponin I 0.193 ng/mL (< 0.028)
[2023-01-15] MEDS: hydrALAZINE 20 MG/ML VIAL SLOW IVP PRN ×2 (18:12→21:06)
[2023-01-15] MEDS ORDERED: Atorvastatin Calcium 40 MG TAB PO SCH (21:00)
[2023-01-15] MEDS: Tamsulosin HCl 0.4 MG CAP PO SCH (21:08)
[2023-01-15] MEDS: TICAGRELOR 90 MG TABLET PO SCH (21:08)
[2023-01-15] MEDS: Rosuvastatin 20 MG TAB PO SCH (21:08)
[2023-01-15 22:58] LABS: SARS-CoV-2 NAA Rapid Test Not Detected (NotDetected)
[2023-01-15] MEDS ORDERED: Calcium Carbonate 500 MG ChewTAB PO PRN (23:50)
[2023-01-16 00:05] LABS: CKMB 22.5 ng/mL (0-6.6)
[2023-01-16] MEDS ORDERED: Ondansetron PF 4 MG/2 ML Vial IVP PRN (00:10)
[2023-01-16 00:26] LABS: Troponin I 10.872 ng/mL (< 0.028)
[2023-01-16] MEDS ORDERED: Chloraseptic Spray 180 ml Bottle PO PRN (02:37)
[2023-01-16 03:14] LABS: #Lymphocytes 1.2 thou/uL (1.20-3.40); #Monocytes 0.8 thou/uL (0.11-0.59); #Neutrophils 9.7 thou/uL (1.40-6.50); %Basophils 0.4 % (0.0-1.0); %Eosinophils 0.1 % (0.0-10.0); %Lymphocytes 9.8 % (21.0-51.0); %Monocytes 6.9 % (0.0-10.0); %Neutrophils 82.7 % (42.0-75.0); Hemoglobin 15.6 g/dL (14.0-18.0); Mean Corpuscular HGB CONC 33.1 g/dL (32.0-36.0); Mean Corpuscular Hemoglobin 31.4 pg (27.0-31.0); Mean Platelet Volume 10.2 fL (7.4-10.4); Platelet Count 146 10x3/uL (130-400); RBC Distribution Width 12.6 % (11.5-14.5); Red Blood Cell (RBC) Count 4.97 mill/uL (4.70-6.10); White Blood Cell (WBC) Count 11.7 10x3/uL (4.8-10.8)
[2023-01-16 03:34] LABS: ALT (SGPT) 14 U/L (8-55); AST (SGOT) 42 U/L (5-34); Alkaline Phosphatase 57 U/L (40-110); Anion Gap 15 mmol/L (10-20); BUN (Urea Nitrogen) 18 mg/dL (8.4-25.7); Bilirubin, Total 0.9 mg/dL (0.2-1.2); Calc. Creatinine Clearance 49 mL/min (70-130); Calcium 10.2 mg/dL (7.8-10.44); Carbon Dioxide 24 mmol/L (23-31); Cardiac Risk 3.5 (Less than 4.5); Chloride 106 mmol/L (98-107); Cholesterol 131 mg/dl (< 200 Desired); Estimated GFR 61; Globulin 3.1 g/dL (2.4-3.5); Glucose 105 mg/dL (83-110); HDL Cholesterol 37 mg/dL (>60 Neg Risk); LDL Cholesterol, Calculated 80 mg/dL; Potassium 3.9 mmol/L (3.5-5.1); Protein, Total 7.1 g/dL (5.8-8.1); Sodium 141 mmol/L (136-145); Triglycerides 68 mg/dL (Less than 150)
[2023-01-16] MEDS: TICAGRELOR 90 MG TABLET PO SCH ×2 (08:14→22:00)
[2023-01-16] MEDS: Aspirin Chewable 81 MG TAB PO SCH (08:14)
[2023-01-16] MEDS: CO Q-10 CAPSULE 50 MG PO SCH (08:15)
[2023-01-16] MEDS ORDERED: Metoprolol Tartrate 25 MG TAB PO SCH (21:00)
[2023-01-16] MEDS: Rosuvastatin 20 MG TAB PO SCH (21:59)
[2023-01-16] MEDS: Tamsulosin HCl 0.4 MG CAP PO SCH (22:00)
[2023-01-17 04:58] LABS: #Eosinphils 0.2 thou/uL (0.0-0.7); #Lymphocytes 1.8 thou/uL (1.20-3.40); %Basophils 0.3 % (0.0-1.0); %Eosinophils 1.6 % (0.0-10.0); %Lymphocytes 16.3 % (21.0-51.0); %Monocytes 9.2 % (0.0-10.0); %Neutrophils 72.6 % (42.0-75.0); Hemoglobin 14.4 g/dL (14.0-18.0); Mean Corpuscular HGB CONC 32.8 g/dL (32.0-36.0); Mean Corpuscular Hemoglobin 31.6 pg (27.0-31.0); Mean Corpuscular Volume 96.2 fl (78.0-98.0); Mean Platelet Volume 10.4 fL (7.4-10.4); Platelet Count 148 10x3/uL (130-400); RBC Distribution Width 12.8 % (11.5-14.5); Red Blood Cell (RBC) Count 4.55 mill/uL (4.70-6.10); White Blood Cell (WBC) Count 11.1 10x3/uL (4.8-10.8)
[2023-01-17 05:25] LABS: ALT (SGPT) 12 U/L (8-55); AST (SGOT) 34 U/L (5-34); Albumin 3.6 g/dL (3.4-4.8); Alkaline Phosphatase 50 U/L (40-110); Anion Gap 8 mmol/L (10-20); BUN (Urea Nitrogen) 19 mg/dL (8.4-25.7); Calc. Creatinine Clearance 59 mL/min (70-130); Calcium 8.7 mg/dL (7.8-10.44); Carbon Dioxide 26 mmol/L (23-31); Chloride 108 mmol/L (98-107); Estimated GFR 76; Globulin 2.5 g/dL (2.4-3.5); Glucose 91 mg/dL (83-110); Potassium 3.8 mmol/L (3.5-5.1); Protein, Total 6.1 g/dL (5.8-8.1); Sodium 138 mmol/L (136-145)
[2023-01-17] MEDS ORDERED: CO Q-10 CAPSULE 100 MG PO SCH (09:15)
[2023-01-17] MEDS: Metoprolol Tartrate 25 MG TAB PO SCH ×2 (09:32→21:12)
[2023-01-17] MEDS: TICAGRELOR 90 MG TABLET PO SCH ×2 (09:32→21:12)
[2023-01-17] MEDS: Aspirin Chewable 81 MG TAB PO SCH (09:32)
[2023-01-17] MEDS: CO Q-10 CAPSULE 50 MG PO SCH (09:36)
[2023-01-17] MEDS: Tamsulosin HCl 0.4 MG CAP PO SCH (21:12)
[2023-01-17] MEDS: Rosuvastatin 20 MG TAB PO SCH (21:12)
[2023-01-18] MEDS ORDERED: Morphine 2 MG/ML VIAL SLOW IVP PRN (00:11)
[2023-01-18] MEDS: Nitroglycerin 0.4 MG TAB (25 Tab Bottle) SL PRN ×2 (00:21→00:51)
[2023-01-18] MEDS ORDERED: Sodium Chloride 0.9% 500 ML IV SCH (01:15)
[2023-01-18] MEDS ORDERED: Lidocaine 2% Viscous Solution 10 ML, Aluminum & Magnesium Hydroxide 30 ML SSW SCH (01:15)
[2023-01-18 05:25] LABS: #Eosinphils 0.1 thou/uL (0.0-0.7); #Lymphocytes 1.4 thou/uL (1.20-3.40); #Monocytes 1.3 thou/uL (0.11-0.59); #Neutrophils 10.7 thou/uL (1.40-6.50); %Basophils 0.1 % (0.0-1.0); %Eosinophils 0.6 % (0.0-10.0); %Lymphocytes 10.1 % (21.0-51.0); %Monocytes 9.9 % (0.0-10.0); %Neutrophils 79.3 % (42.0-75.0); Hemoglobin 13.7 g/dL (14.0-18.0); Mean Corpuscular HGB CONC 32.4 g/dL (32.0-36.0); Mean Corpuscular Hemoglobin 31.3 pg (27.0-31.0); Mean Corpuscular Volume 96.7 fl (78.0-98.0); Mean Platelet Volume 10.6 fL (7.4-10.4); Platelet Count 144 10x3/uL (130-400); RBC Distribution Width 12.8 % (11.5-14.5); Red Blood Cell (RBC) Count 4.38 mill/uL (4.70-6.10); White Blood Cell (WBC) Count 13.5 10x3/uL (4.8-10.8)
[2023-01-18 08:03] LABS: ALT (SGPT) 11 U/L (8-55); AST (SGOT) 22 U/L (5-34); Albumin 3.6 g/dL (3.4-4.8); Alkaline Phosphatase 46 U/L (40-110); Anion Gap 13 mmol/L (10-20); BUN (Urea Nitrogen) 19 mg/dL (8.4-25.7); Bilirubin, Total 0.9 mg/dL (0.2-1.2); Calc. Creatinine Clearance 53 mL/min (70-130); Calcium 8.6 mg/dL (7.8-10.44); Carbon Dioxide 21 mmol/L (23-31); Chloride 106 mmol/L (98-107); Estimated GFR 72; Globulin 2.7 g/dL (2.4-3.5); Glucose 110 mg/dL (83-110); Potassium 3.8 mmol/L (3.5-5.1); Protein, Total 6.3 g/dL (5.8-8.1); Sodium 136 mmol/L (136-145)
[2023-01-18] MEDS: TICAGRELOR 90 MG TABLET PO SCH ×2 (08:53→20:07)
[2023-01-18] MEDS: CO Q-10 CAPSULE 100 MG PO SCH (08:53)
[2023-01-18] MEDS: Metoprolol Tartrate 25 MG TAB PO SCH ×2 (08:53→20:07)
[2023-01-18] MEDS: Aspirin Chewable 81 MG TAB PO SCH (08:54)
[2023-01-18] MEDS ORDERED: Lisinopril 5 MG TAB PO SCH (11:00)
[2023-01-18] MEDS: Tamsulosin HCl 0.4 MG CAP PO SCH (20:07)
[2023-01-18] MEDS: Rosuvastatin 20 MG TAB PO SCH (20:07)
[2023-01-19 05:12] LABS: #Eosinphils 0.1 thou/uL (0.0-0.7); #Lymphocytes 1.4 thou/uL (1.20-3.40); #Monocytes 1.3 thou/uL (0.11-0.59); #Neutrophils 10.3 thou/uL (1.40-6.50); %Basophils 0.2 % (0.0-1.0); %Eosinophils 0.8 % (0.0-10.0); %Lymphocytes 10.8 % (21.0-51.0); %Monocytes 9.9 % (0.0-10.0); %Neutrophils 78.3 % (42.0-75.0); Hemoglobin 13.2 g/dL (14.0-18.0); Mean Corpuscular HGB CONC 32.5 g/dL (32.0-36.0); Mean Corpuscular Hemoglobin 31.4 pg (27.0-31.0); Mean Corpuscular Volume 96.6 fl (78.0-98.0); Mean Platelet Volume 10.8 fL (7.4-10.4); Platelet Count 133 10x3/uL (130-400); RBC Distribution Width 12.7 % (11.5-14.5); Red Blood Cell (RBC) Count 4.21 mill/uL (4.70-6.10); White Blood Cell (WBC) Count 13.2 10x3/uL (4.8-10.8)
[2023-01-19 05:36] LABS: ALT (SGPT) 10 U/L (8-55); AST (SGOT) 15 U/L (5-34); Albumin 3.4 g/dL (3.4-4.8); Alkaline Phosphatase 43 U/L (40-110); Anion Gap 12 mmol/L (10-20); BUN (Urea Nitrogen) 17 mg/dL (8.4-25.7); Bilirubin, Total 1.1 mg/dL (0.2-1.2); Calc. Creatinine Clearance 53 mL/min (70-130); Calcium 8.5 mg/dL (7.8-10.44); Carbon Dioxide 20 mmol/L (23-31); Chloride 107 mmol/L (98-107); Estimated GFR 73; Globulin 2.5 g/dL (2.4-3.5); Glucose 94 mg/dL (83-110); Potassium 3.7 mmol/L (3.5-5.1); Protein, Total 5.9 g/dL (5.8-8.1); Sodium 135 mmol/L (136-145)
[2023-01-19] MEDS ORDERED: Lisinopril 2.5 MG TAB PO SCH (09:00)
[2023-01-19] MEDS: CO Q-10 CAPSULE 100 MG PO SCH (09:06)
[2023-01-19] MEDS: TICAGRELOR 90 MG TABLET PO SCH (09:06)
[2023-01-19] MEDS: Metoprolol Tartrate 25 MG TAB PO SCH (09:06)
[2023-01-19] MEDS: Aspirin Chewable 81 MG TAB PO SCH (09:06)
[2023-01-19 11:31] VITALS: BP 145/65; TEMP 98.1
== END 2023-01-19 13:00 | disposition home or self-care (01) | DRG 247 ==
LOC: ERS 15:22 → CCL 16:00 → CCU 17:13 → 2NO 01-16 13:51
PROVIDERS: ADMIT Internal Medicine Cardiovascular Disease; ATTEND Internal Medicine Cardiovascular Disease
PROC: 027036Z Dilation of Coronary Artery, One Artery with Three Drug-eluting Intraluminal Devices, Percutaneous Approach (ICD-10-PCS; principal; 2023-01-15)
PROC: 4A023N7 Measurement of Cardiac Sampling and Pressure, Left Heart, Percutaneous Approach (ICD-10-PCS; 2023-01-15)
PROC: B2151ZZ Fluoroscopy of Left Heart using Low Osmolar Contrast (ICD-10-PCS; 2023-01-15)
PROC: B2111ZZ Fluoroscopy of Multiple Coronary Arteries using Low Osmolar Contrast (ICD-10-PCS; 2023-01-15)
PROC: B240ZZ3 Ultrasonography of Single Coronary Artery, Intravascular (ICD-10-PCS; 2023-01-15)
DX: I21.19 ST elevation (STEMI) myocardial infarction involving other coronary artery of inferior wall (principal); Z20.822 Contact with and (suspected) exposure to COVID-19; I49.3 Ventricular premature depolarization; I25.10 Atherosclerotic heart disease of native coronary artery without angina pectoris; E78.5 Hyperlipidemia, unspecified; N40.0 Benign prostatic hyperplasia without lower urinary tract symptoms; N52.9 Male erectile dysfunction, unspecified; I73.9 Peripheral vascular disease, unspecified; Z96.611 Presence of right artificial shoulder joint; R11.2 Nausea with vomiting, unspecified; Z78.1 Physical restraint status; Z88.8 Allergy status to other drugs, medicaments and biological substances; Z95.5 Presence of coronary angioplasty implant and graft; Z79.82 Long term (current) use of aspirin
CPT/HCPCS: 36415; 71045; 74018; 80053; 80061; 82553; 83605; 83880; 84484; 85025; 85347; 92941; 93005; 93010; 93306; 93454; 93798; 96374; C1725; C1769; C1874; C1887; C9606; J0153; J0360; J0461; J1644; J2001; J2272; J2405; J7030; Q9967; U0002

== ENCOUNTER 2023-01-19 19:56 | Inpatient (IN) | payer MEDICARE ==
[~2023-01-19 19:56] MED LIST changes: -Iopamidol 370 76% 100 ML VIAL ONE; +Iopamidol-370 76% 500 ML 1 ML ONE
[2023-01-19] MEDS ORDERED: Ondansetron PF 4 MG/2 ML Vial ONE (20:34)
[2023-01-19] MEDS ORDERED: Morphine 4 MG/ML VIAL ONE (20:34)
[2023-01-19 20:40] LABS: #Eosinphils 0.1 thou/uL (0.0-0.7); #Lymphocytes 1.5 thou/uL (1.20-3.40); #Monocytes 1.2 thou/uL (0.11-0.59); %Basophils 0.3 % (0.0-1.0); %Lymphocytes 11.9 % (21.0-51.0); %Neutrophils 77.8 % (42.0-75.0); Hemoglobin 13.5 g/dL (14.0-18.0); Mean Corpuscular Hemoglobin 31.8 pg (27.0-31.0); Mean Corpuscular Volume 96.4 fl (78.0-98.0); Mean Platelet Volume 10.5 fL (7.4-10.4); Platelet Count 139 10x3/uL (130-400); RBC Distribution Width 12.7 % (11.5-14.5); Red Blood Cell (RBC) Count 4.25 mill/uL (4.70-6.10); White Blood Cell (WBC) Count 12.8 10x3/uL (4.8-10.8)
[2023-01-19 21:04] LABS: ALT (SGPT) 11 U/L (8-55); AST (SGOT) 17 U/L (5-34); Albumin 3.7 g/dL (3.4-4.8); Alkaline Phosphatase 51 U/L (40-110); Anion Gap 11 mmol/L (10-20); BUN (Urea Nitrogen) 20 mg/dL (8.4-25.7); Bilirubin, Total 0.7 mg/dL (0.2-1.2); Calc. Creatinine Clearance 0 mL/min (70-130); Calcium 8.8 mg/dL (7.8-10.44); Carbon Dioxide 25 mmol/L (23-31); Chloride 105 mmol/L (98-107); Estimated GFR 58; Globulin 3.1 g/dL (2.4-3.5); Glucose 100 mg/dL (83-110); Potassium 3.9 mmol/L (3.5-5.1); Protein, Total 6.8 g/dL (5.8-8.1); Sodium 137 mmol/L (136-145)
[2023-01-19 21:11] LABS: Critical Call Chem Troponin I RESULT DECREASING
[2023-01-19 21:29] LABS: CKMB 1.1 ng/mL (0-6.6)
[2023-01-19] MEDS ORDERED: Mag-Al 1200 mg/1200 mg/30 ML UDCUP ONE (22:00)
[2023-01-19 23:05] LABS: Bacteria/HPF Rare-Few HPF (None Seen); Bilirubin Negative (Negative); Blood, Urine Negative (Negative); Clarity Clear (Clear); Glucose, Urine (Dipstick) Normal (Negative); Ketone, Urine Negative (Negative); Leukocyte Negative Leu/uL (Negative); Mucous/LPF Rare LPF (<2+); Nitrite Negative (Negative); Protein, Urine (Dipstick) 30 mg/dL (Neg-Trace); RBC/HPF 0-3 HPF (0-3); Specific Gravity, Urine 1.019 (1.002-1.036); Squamous Epithelial 0-3 HPF (0-3); Urobilinogen Normal mg/dL (Less than 2)
[2023-01-19] MEDS ORDERED: Piperacillin/Tazobactam 3.375 GM VIAL ONE (23:57)
[2023-01-20] MEDS ORDERED: Ondansetron PF 4 MG/2 ML Vial ONE (00:39)
[2023-01-20] MEDS ORDERED: Morphine 2 MG/ML VIAL SLOW IVP PRN (00:51)
[2023-01-20] MEDS ORDERED: Lactated Ringer's 500 ML IV SCH (01:00)
[2023-01-20 04:25] LABS: SARS-CoV-2 NAA Rapid Test Not Detected (NotDetected)
[2023-01-20] MEDS: Piperacillin/Tazobactam 3.375 GM in Sodium Chloride 0.9% 100 ML IVPB SCH ×3 (04:59→20:49)
[2023-01-20 05:36] LABS: #Lymphocytes 1.1 thou/uL (1.20-3.40); #Monocytes 1.4 thou/uL (0.11-0.59); #Neutrophils 13.4 thou/uL (1.40-6.50); %Eosinophils 0.1 % (0.0-10.0); %Lymphocytes 6.7 % (21.0-51.0); %Monocytes 9.1 % (0.0-10.0); %Neutrophils 84.1 % (42.0-75.0); Hemoglobin 13.5 g/dL (14.0-18.0); Mean Corpuscular HGB CONC 31.9 g/dL (32.0-36.0); Mean Corpuscular Hemoglobin 31.5 pg (27.0-31.0); Mean Corpuscular Volume 98.9 fl (78.0-98.0); Mean Platelet Volume 10.3 fL (7.4-10.4); Platelet Count 134 10x3/uL (130-400); RBC Distribution Width 12.7 % (11.5-14.5); Red Blood Cell (RBC) Count 4.28 mill/uL (4.70-6.10); White Blood Cell (WBC) Count 15.9 10x3/uL (4.8-10.8)
[2023-01-20 06:04] LABS: ALT (SGPT) 417 U/L (8-55); AST (SGOT) 630 U/L (5-34); Albumin 3.2 g/dL (3.4-4.8); Alkaline Phosphatase 189 U/L (40-110); Anion Gap 16 mmol/L (10-20); BUN (Urea Nitrogen) 18 mg/dL (8.4-25.7); Bilirubin, Total 1.3 mg/dL (0.2-1.2); Calc. Creatinine Clearance 22 mL/min (70-130); Calcium 8.3 mg/dL (7.8-10.44); Carbon Dioxide 17 mmol/L (23-31); Chloride 106 mmol/L (98-107); Estimated GFR 65; Globulin 2.9 g/dL (2.4-3.5); Glucose 116 mg/dL (83-110); Potassium 4.2 mmol/L (3.5-5.1); Protein, Total 6.1 g/dL (5.8-8.1); Sodium 135 mmol/L (136-145)
[2023-01-20] MEDS ORDERED: Oxybutynin ER 5 MG TAB PO SCH (09:00)
[2023-01-20] MEDS: CO Q-10 CAPSULE 100 MG PO SCH (09:32)
[2023-01-20] MEDS: TICAGRELOR 90 MG TABLET PO SCH ×2 (09:34→20:49)
[2023-01-20] MEDS: Aspirin 81 mg Enteric Coated Tablet PO SCH (09:34)
[2023-01-20] MEDS: Polyethylene Glycol 3350 17 GM Packet PO SCH (09:35)
[2023-01-20] MEDS: Lisinopril 2.5 MG TAB PO SCH (09:35)
[2023-01-20] MEDS: Metoprolol Tartrate 25 MG TAB PO SCH ×2 (09:35→20:49)
[2023-01-20 10:31] VITALS: BMI 25.7
[2023-01-20] MEDS: Rosuvastatin 10 MG TAB PO SCH (20:49)
[2023-01-20] MEDS: Tamsulosin HCl 0.4 MG CAP PO SCH (20:49)
[2023-01-21] MEDS: Piperacillin/Tazobactam 3.375 GM in Sodium Chloride 0.9% 100 ML IVPB SCH ×3 (05:28→20:32)
[2023-01-21 05:58] LABS: ALT (SGPT) 219 U/L (8-55); AST (SGOT) 112 U/L (5-34); Albumin 3.2 g/dL (3.4-4.8); Alkaline Phosphatase 142 U/L (40-110); Anion Gap 17 mmol/L (10-20); BUN (Urea Nitrogen) 15 mg/dL (8.4-25.7); Bilirubin, Total 1.2 mg/dL (0.2-1.2); Calc. Creatinine Clearance 48 mL/min (70-130); Calcium 8.4 mg/dL (7.8-10.44); Carbon Dioxide 17 mmol/L (23-31); Chloride 105 mmol/L (98-107); Estimated GFR 63; Globulin 3.2 g/dL (2.4-3.5); Glucose 100 mg/dL (83-110); Potassium 4.5 mmol/L (3.5-5.1); Protein, Total 6.4 g/dL (5.8-8.1); Sodium 134 mmol/L (136-145)
[2023-01-21] MEDS: Lisinopril 2.5 MG TAB PO SCH (09:34)
[2023-01-21] MEDS: Polyethylene Glycol 3350 17 GM Packet PO SCH (09:34)
[2023-01-21] MEDS: Aspirin 81 mg Enteric Coated Tablet PO SCH (09:35)
[2023-01-21] MEDS: CO Q-10 CAPSULE 100 MG PO SCH (09:35)
[2023-01-21] MEDS: Metoprolol Tartrate 25 MG TAB PO SCH ×2 (09:35→20:32)
[2023-01-21] MEDS: TICAGRELOR 90 MG TABLET PO SCH ×2 (09:35→20:32)
[2023-01-21 10:20] LABS: #Lymphocytes 0.8 thou/uL (1.20-3.40); #Monocytes 1.3 thou/uL (0.11-0.59); #Neutrophils 13.2 thou/uL (1.40-6.50); %Basophils 0.1 % (0.0-1.0); %Eosinophils 0.2 % (0.0-10.0); %Lymphocytes 5.3 % (21.0-51.0); %Monocytes 8.4 % (0.0-10.0); Hemoglobin 12.6 g/dL (14.0-18.0); Mean Corpuscular HGB CONC 31.3 g/dL (32.0-36.0); Mean Corpuscular Hemoglobin 30.7 pg (27.0-31.0); Mean Corpuscular Volume 97.8 fl (78.0-98.0); Mean Platelet Volume 10.8 fL (7.4-10.4); Platelet Count 152 10x3/uL (130-400); RBC Distribution Width 12.4 % (11.5-14.5); White Blood Cell (WBC) Count 15.4 10x3/uL (4.8-10.8)
[2023-01-21] MEDS ORDERED: Senokot S 8.6-50 MG TAB PO SCH (10:30)
[2023-01-21 11:11] LABS: HBSAg Index 0.36 S/CO (0-0.99); Hep A IgM AB Non-Reactive (NonReactive); Hep A IgM S/CO 0.17 S/CO (0-0.79); Hep B Surf Ag Non-Reactive S/CO (NonReactive); Hep C IgG Ab Non-Reactive (NonReactive); Hep C Index 0.04 S/CO (0-0.79); Hepatitis B Core IgM Abs Non-Reactive (NonReactive)
[2023-01-21] MEDS: Rosuvastatin 10 MG TAB PO SCH (20:31)
[2023-01-21] MEDS: Tamsulosin HCl 0.4 MG CAP PO SCH (20:31)
[2023-01-21] MEDS: Senokot S 8.6-50 MG TAB PO SCH (20:32)
[2023-01-22] MEDS: Piperacillin/Tazobactam 3.375 GM in Sodium Chloride 0.9% 100 ML IVPB SCH ×2 (03:31→12:30)
[2023-01-22 05:44] LABS: #Lymphocytes 0.8 thou/uL (1.20-3.40); #Monocytes 1.4 thou/uL (0.11-0.59); #Neutrophils 12.3 thou/uL (1.40-6.50); %Eosinophils 0.1 % (0.0-10.0); %Lymphocytes 5.6 % (21.0-51.0); %Monocytes 9.4 % (0.0-10.0); Mean Corpuscular HGB CONC 32.5 g/dL (32.0-36.0); Mean Corpuscular Hemoglobin 31.4 pg (27.0-31.0); Mean Corpuscular Volume 96.6 fl (78.0-98.0); Mean Platelet Volume 10.3 fL (7.4-10.4); Platelet Count 154 10x3/uL (130-400); RBC Distribution Width 12.5 % (11.5-14.5); White Blood Cell (WBC) Count 14.5 10x3/uL (4.8-10.8)
[2023-01-22 06:02] LABS: ALT (SGPT) 126 U/L (8-55); AST (SGOT) 45 U/L (5-34); Albumin 3.1 g/dL (3.4-4.8); Alkaline Phosphatase 120 U/L (40-110); Anion Gap 13 mmol/L (10-20); BUN (Urea Nitrogen) 16 mg/dL (8.4-25.7); Bilirubin, Total 0.9 mg/dL (0.2-1.2); Calc. Creatinine Clearance 49 mL/min (70-130); Calcium 8.2 mg/dL (7.8-10.44); Carbon Dioxide 20 mmol/L (23-31); Chloride 104 mmol/L (98-107); Estimated GFR 65; Glucose 103 mg/dL (83-110); Potassium 3.4 mmol/L (3.5-5.1); Protein, Total 6.1 g/dL (5.8-8.1); Sodium 134 mmol/L (136-145)
[2023-01-22] MEDS ORDERED: Potassium Chloride 20 MEQ TAB PO SCH (08:00)
[2023-01-22] MEDS: Lisinopril 2.5 MG TAB PO SCH (08:13)
[2023-01-22] MEDS: CO Q-10 CAPSULE 100 MG PO SCH (08:13)
[2023-01-22] MEDS: Aspirin 81 mg Enteric Coated Tablet PO SCH (08:13)
[2023-01-22] MEDS: Senokot S 8.6-50 MG TAB PO SCH (08:13)
[2023-01-22] MEDS: TICAGRELOR 90 MG TABLET PO SCH (08:14)
[2023-01-22] MEDS: Polyethylene Glycol 3350 17 GM Packet PO SCH (08:14)
[2023-01-22] MEDS: Metoprolol Tartrate 25 MG TAB PO SCH (08:14)
[2023-01-22 16:31] VITALS: BP 132/51; TEMP 98.2
== END 2023-01-22 17:11 | disposition home or self-care (01) | DRG 444 ==
LOC: ERS 19:56 → NEURO 01-20 00:05
PROVIDERS: ADMIT Student in an Organized Health Care Education/Training Program; ATTEND Student in an Organized Health Care Education/Training Program
DX: K80.00 Calculus of gallbladder with acute cholecystitis without obstruction (principal); I21.9 Acute myocardial infarction, unspecified; I25.10 Atherosclerotic heart disease of native coronary artery without angina pectoris; I10 Essential (primary) hypertension; E78.5 Hyperlipidemia, unspecified; N40.0 Benign prostatic hyperplasia without lower urinary tract symptoms; I73.9 Peripheral vascular disease, unspecified; Z96.611 Presence of right artificial shoulder joint; F41.9 Anxiety disorder, unspecified; E87.6 Hypokalemia; K59.00 Constipation, unspecified; R74.01 Elevation of levels of liver transaminase levels; Z20.822 Contact with and (suspected) exposure to COVID-19; Z96.653 Presence of artificial knee joint, bilateral; Z88.6 Allergy status to analgesic agent; Z95.5 Presence of coronary angioplasty implant and graft; Z88.8 Allergy status to other drugs, medicaments and biological substances; Z79.899 Other long term (current) drug therapy; Z82.49 Family history of ischemic heart disease and other diseases of the circulatory system; Z98.890 Other specified postprocedural states; Z79.82 Long term (current) use of aspirin; Z98.41 Cataract extraction status, right eye; Z98.42 Cataract extraction status, left eye
CPT/HCPCS: 36415; 71045; 71275; 74174; 76705; 80053; 80074; 81003; 81015; 82553; 83690; 83880; 84484; 85025; 93005; J2270; J2405; J2543; J3490; J7120; Q9967

== ENCOUNTER 2023-02-12 11:32 | Outpatient (CLI) | payer MEDICARE | END 2023-02-12 11:33 | disposition home or self-care (01) | LOC: BICRAD 11:32 | PROVIDERS: ATTEND Family Medicine | DX: M79.644 Pain in right finger(s) (principal) ==

== ENCOUNTER 2023-06-19 13:26 | Emergency (ER) | payer MEDICARE ==
[2023-06-19 13:58] LABS: #Monocytes 0.9 thou/uL (0.11-0.59); #Neutrophils 5.3 thou/uL (1.40-6.50); %Basophils 0.6 % (0.0-1.0); %Eosinophils 0.3 % (0.0-10.0); %Lymphocytes 10.3 % (21.0-51.0); %Monocytes 13.3 % (0.0-10.0); %Neutrophils 74.9 % (42.0-75.0); Hematocrit 42.5 % (42.0-52.0); Hemoglobin 13.4 g/dL (14.0-18.0); Mean Corpuscular HGB CONC 31.5 g/dL (32.0-36.0); Mean Corpuscular Hemoglobin 29.6 pg (27.0-31.0); Mean Platelet Volume 10.1 fL (7.4-10.4); Platelet Count 232 10x3/uL (130-400); RBC Distribution Width 13.9 % (11.5-14.5); Red Blood Cell (RBC) Count 4.52 mill/uL (4.70-6.10)
[2023-06-19 14:26] LABS: ALT (SGPT) 13 U/L (8-55); AST (SGOT) 17 U/L (5-34); Albumin 3.8 g/dL (3.4-4.8); Alkaline Phosphatase 63 U/L (40-110); Anion Gap 13 mmol/L (10-20); BUN (Urea Nitrogen) 13 mg/dL (8.4-25.7); Bilirubin, Total 0.3 mg/dL (0.2-1.2); Calc. Creatinine Clearance 0 mL/min (70-130); Calcium 8.9 mg/dL (7.8-10.44); Carbon Dioxide 27 mmol/L (23-31); Chloride 100 mmol/L (98-107); Estimated GFR 68; Globulin 3.3 g/dL (2.4-3.5); Glucose 93 mg/dL (83-110); Potassium 4.2 mmol/L (3.5-5.1); Protein, Total 7.1 g/dL (5.8-8.1); Sodium 136 mmol/L (136-145)
[2023-06-19 14:35] LABS: SARS-CoV-2 NAA Rapid Test DETECTED (NotDetected)
== END 2023-06-19 15:10 | disposition home or self-care (01) ==
LOC: ERS 13:26
DX: U07.1 COVID-19 (principal); E78.5 Hyperlipidemia, unspecified; I10 Essential (primary) hypertension; Z79.899 Other long term (current) drug therapy
CPT/HCPCS: 0240U; 71045; 80053; 84484; 85025; 93005; 99285; 36415

== ENCOUNTER 2023-08-17 09:26 | Outpatient (CLI) | payer MEDICARE | END 2023-08-17 09:27 | disposition home or self-care (01) | LOC: SCSRAD 09:26 | PROVIDERS: ATTEND Nurse Practitioner Family | DX: M25.512 Pain in left shoulder (principal); M19.012 Primary osteoarthritis, left shoulder ==